=== PATIENT | female | born 1960 | race Caucasian/White ===

== ENCOUNTER → 2016-09-19 | Outpatient (CLI) | payer MEDICARE, MEDICAID ==
[~2016-09-19] MED LIST: AGM875T PO; BACL20TA PO; CEPH500C PO; CITA10SO4 PO; MPR22T TP; SIMV20TA3 PO
--- OUTSIDE RECORDS SUMMARY | 2016-09-19 10:51 | XMS REPORT | Continuity of Care Document ---
Author Author [facility] Organization [facility] Address Unknown Phone Unavailable Care Team Providers Care Shank Threader Name Role Phone PAIGE OLIVER MD PCP Insurance Providers Payer Name Policy Number Subscriber Name Relationship Wps Medicare [id number] Audrey Galindo 18 Self / Same As Patient Prem [employer] Amer[employer]p [id number] Audrey Galindo 18 Self / Same As Patient Advance Directives Directive Response Recorded Date/Time Advance Directives No 06/08/14 11:30am Health Care Power of Clinical Resource Nurse No 05/29/14 6:25pm Organ Donor Yes 05/29/14 6:25pm Problems Medical Problems Problem Onset Date Status Laceration of scalp Unknown Active Laceration of scalp Unknown Active Medications Medication Dose Route Sig Days/Qty Instructions Order Date Discontinued Date Status Citalopram Hydrobromide 10 Mg PO 10/08/12 Active Simvastatin 20 Mg PO DAILY 10/08/12 Active Baclofen (Lioresal) 1 Each PO TWICE A DAY 10/08/12 Active Amoxicillin/Clavulanate Potassium 1 Tab PO TWICE A DAY 20 Qty FOR INFECTION 10/08/12 02/01/13 Discontinued Mupirocin 0 TP THREE TIMES A DAY 1 Qty 10/08/12 02/01/13 Discontinued Cephalexin Monohydrate (Keflex) 1 Each PO TWICE A DAY 6 Qty 05/29/14 Active Social History Social History Problem Response Recorded Date/Time Alcohol Use Denies Use 06/08/2014 11:30am Recreational Drug Use No 06/08/2014 11:30am Recent Foreign Travel No 02/01/2013 5:26pm Smoking Status Never a Smoker 06/08/2014 11:30am Query Response Start Date Stop Date Smoking Status Never a Smoker Hospital Discharge Instructions No hospital discharge instructions. Plan of Care No plan of care. Functional Status No functional status results. Allergies, Adverse Reactions, Alerts Allergen Type Severity Reaction Status Last Updated neomycin sulfate Allergy Unknown Active 10/08/12 Bacitracin Zinc Allergy Unknown Active 10/08/12 bacitracin ([id number]) Allergy Unknown Active 10/08/12 Polymyxin B Allergy Unknown Active 10/08/12 MYCINS Allergy Unknown Active 10/08/12 Immunizations Name Given Type Tetanus Booster (TDap) Less than 5yrs Historical Vital Signs Acute Vital Signs Vital Response Date/Time Temperature (Fahrenheit) 97.9 degrees F (97.6 - 99.5) Temperature (Calculated Celsius) 36.42885 degrees C (36.4 - 37.5) Temperature Source Temporal Pulse Rate (adult) 82 bpm (60 - 90) Respiratory Rate 20 bpm (12 - 24) O2 Sat by Pulse Oximetry 97 % (88 - 100) Blood Pressure 108/69 mm Hg Pain Pain Intensity 0 Height (Feet) 5 feet Height (Inches) 1 inches Height (Calculated Centimeters) 154.018264 cm Weight (Pounds) 125 pounds Weight (Calculated Kilograms) 56.239405 kilograms Calculated BMI 23.62 Results No known relevant diagnostic tests, laboratory data and/or discharge summary. Procedures No known history of procedures. Encounters Encounter Location Date/Time Departed Emergency Room [facility] 06/08/14 11:23am Departed Emergency Room [facility] 05/29/14 5:49pm Recent Diagnosis
--- NOTE | 2016-09-19 11:21 | Diagnostic Imaging Report ---
AP and frog-lateral views of the right hip. INDICATION: Right hip pain. FINDINGS: No fracture, dislocation, or radiopaque foreign body seen. Minimal degenerative sclerotic changes at the symphysis pubis seen. The hip joint and right SI joint appear grossly unremarkable. IMPRESSION: No acute process. Dictated by: Dictated on workstation # [id number]
== END ==
LOC: RAD 10:47
PROVIDERS: ATTEND Family Medicine
DX: M25.551 Pain in right hip (principal)
CPT/HCPCS: 73502

== ENCOUNTER → 2016-12-11 | Outpatient (CLI) | payer MEDICARE, MEDICAID ==
--- NOTE | 2016-12-12 09:36 | Diagnostic Imaging Report ---
EXAMINATION: Bilateral screening mammogram with a Computer Aided Detection (CAD) system. INDICATION: Screening. PERSONAL HISTORY: No current complaints stated on the questionnaire. COMPARISON: 07/06/2015. FINDINGS: The breasts are composed of heterogeneously dense parenchyma which may decrease mammographic sensitivity. There is an asymmetry measuring 7 mm in the posterior aspect of the right CC projection. A similar asymmetry along the posterior aspect of the left CC view is also seen. No definite correlate on the MLO projection on each side is noted. IMPRESSION: Focal compression views and ultrasound evaluation for bilateral posterior central CC projection asymmetry would be recommended. ACR BI-RADS Category 0: Incomplete. (Needs additional imaging evaluation). Result letter will be mailed to the patient. Note: At least 10% of breast cancer is not imaged by mammography. Dictated by: Dictated on workstation # [id number]
== END ==
LOC: RAD 13:24
PROVIDERS: ATTEND Registered Nurse
DX: Z12.31 Encounter for screening mammogram for malignant neoplasm of breast (principal); R92.8 Other abnormal and inconclusive findings on diagnostic imaging of breast
CPT/HCPCS: 77067

== ENCOUNTER → 2017-01-14 | Outpatient (CLI) | payer MEDICARE, MEDICAID ==
--- NOTE | 2017-01-14 19:41 | Diagnostic Imaging Report ---
EXAMINATION: Bilateral breast ultrasound. INDICATION: Asymmetries in the posterior aspect of each breast seen on CC projection with suggestion of summation artifact on additional diagnostic views. FINDINGS: The four quadrants and retroareolar region of each breast and axilla were scanned with no underlying abnormality seen. IMPRESSION: Negative study. Annual screening mammograms recommended. ACR BI-RADS Category 1: Negative. Result letter will be mailed to the patient. Note: At least 10% of breast cancer is not imaged by mammography. Dictated by: Dictated on workstation # [id number]
--- NOTE | 2017-01-14 19:43 | Diagnostic Imaging Report ---
EXAMINATION: Left breast digital diagnostic mammogram with CAD. The current study was also evaluated with a Computer Aided Detection (CAD) system. INDICATION: Asymmetries along the central aspect of the CC projection on both sides, noted on recent screening. FINDINGS: The breasts are composed of heterogeneously dense parenchyma which may decrease mammographic sensitivity. Focal compression views in the CC projection demonstrate less prominent asymmetries blending with the rest of the dense parenchyma. Also on the true lateral view an increased density area, superiorly, is evaluated with focal compression view which demonstrates no definite underlying lesion on the corresponding focal compression view evaluation. IMPRESSION: The asymmetries evaluated with additional mammographic views demonstrate no definite underlying lesion with background dense parenchyma noted. Ultrasound evaluation is pending. ACR BI-RADS Category 0: Incomplete. (Needs additional imaging evaluation). Result letter will be mailed to the patient. Note: At least 10% of breast cancer is not imaged by mammography. Dictated by: Dictated on workstation # [id number]
== END ==
LOC: RAD 13:36
PROVIDERS: ATTEND Registered Nurse
DX: R92.8 Other abnormal and inconclusive findings on diagnostic imaging of breast (principal)
CPT/HCPCS: 77066

== ENCOUNTER → 2017-08-14 | Outpatient (CLI) | payer MEDICARE, MEDICAID ==
[2017-08-14 17:26] LABS: BASOPHILS % (AUTO) 0 % (0-10); EOSINOPHILS # (AUTO) 0.3 10^3/uL (0.0-0.3); EOSINOPHILS % (AUTO) 3 % (0-10); HEMATOCRIT 46 % (35-52); HEMOGLOBIN 15.4 G/DL (11.5-16.0); LYMPHOCYTES # (AUTO) 3.2 X 10^3 (1.0-4.0); LYMPHOCYTES % (AUTO) 40 % (12-44); MEAN CORPUSCULAR HEMOGLOBIN 30 PG (25-34); MEAN CORPUSCULAR HGB CONC 33 G/DL (32-36); MEAN CORPUSCULAR VOLUME 91 FL (80-99); MEAN PLATELET VOLUME 9.5 FL (7.4-10.4); MONOCYTES # (AUTO) 0.6 X 10^3 (0.0-1.0); MONOCYTES % (AUTO) 8 % (0-12); NEUTROPHILS # (AUTO) 3.9 X 10^3 (1.8-7.8); NEUTROPHILS % (AUTO) 49 % (42-75); PLATELET COUNT 233 10^3/uL (130-400); RED BLOOD COUNT 5.07 10^6/uL (4.35-5.85); RED CELL DISTRIBUTION WIDTH 12.9 % (10.0-14.5)
[2017-08-14 17:35] LABS: ALANINE AMINOTRANSFERASE 23 U/L (0-55); ALBUMIN 4.1 GM/DL (3.2-4.5); ALKALINE PHOSPHATASE 99 U/L (40-136); BILIRUBIN,TOTAL 0.3 MG/DL (0.1-1.0); BUN/CREATININE RATIO 23; CALCIUM 9.8 MG/DL (8.5-10.1); CARBON DIOXIDE 26 MMOL/L (21-32); CHLORIDE 105 MMOL/L (98-107); CREATININE SERUM 0.79 MG/DL (0.60-1.30); GFR ESTIMATED > 60; GLUCOSE 85 MG/DL (70-105); POTASSIUM 3.9 MMOL/L (3.6-5.0); SODIUM 142 MMOL/L (135-145); TOTAL PROTEIN 7.6 GM/DL (6.4-8.2)
== END ==
LOC: LAB 16:56
PROVIDERS: ATTEND Nurse Practitioner Family
DX: R06.2 Wheezing (principal); R05 Cough
CPT/HCPCS: 36415; 80053; 85025; 86738

== ENCOUNTER → 2018-01-29 | Outpatient (CLI) | payer MEDICARE, MEDICAID ==
--- NOTE | 2018-01-29 16:11 | Diagnostic Imaging Report ---
Indication: Routine screening. Comparison is made with prior mammogram from 12/11/2016 and 07/03/2015. 2-D and 3-D bilateral screening mammography was performed with CAD. Both breasts are heterogeneously dense, limiting the sensitivity of mammography. The right MLO view is significantly compromised due to motion artifact. Patient is reported handicapped and in a wheelchair, limiting evaluation. No mass or malignant-appearing microcalcifications are seen. The axillae are unremarkable. Impression: BI-RADS category 2. No mammographic features suspicious for malignancy are identified. ACR BI-RADS Category 2: Benign findings. Result letter will be mailed to the patient. Note: At least 10% of breast cancer is not imaged by mammography. Dictated by: Dictated on workstation # [id number]
== END ==
LOC: RAD 12:57
PROVIDERS: ATTEND Registered Nurse
DX: Z12.31 Encounter for screening mammogram for malignant neoplasm of breast (principal)
CPT/HCPCS: 77067

== ENCOUNTER 2022-02-03 05:30 | Outpatient (CLI) | payer MEDICARE, MEDICAID ==
[~2022-02-03] VITALS: Ht 154.9 cm; Wt 74.1 kg
[2022-02-06] MEDS ORDERED: FOLI0.4T6 PO ×2 (16:03)
[2022-02-06] MEDS ORDERED: FESO4TAB PO ×2 (16:03)
[2022-02-06] MEDS ORDERED: LISI20TA26 PO ×2 (16:03)
[2022-02-06] MEDS ORDERED: MONT-40 PO ×2 (16:03)
[2022-02-06] MEDS ORDERED: CELE100C84 PO ×2 (16:03)
[2022-02-06] MEDS ORDERED: MV-M1TAB20 PO ×2 (16:03)
[2022-02-06] MEDS ORDERED: OMEP20CA18 PO ×2 (16:03)
[2022-02-06] MEDS ORDERED: PRETAB ×2 (16:03)
[2022-02-06] MEDS ORDERED: CITA20TA9 PO ×2 (16:03)
== END 2022-02-06 16:21 | disposition home or self-care (01) ==
LOC: PREOP 05:30
PROVIDERS: ATTEND Obstetrics & Gynecology
DX: Z01.818 Encounter for other preprocedural examination (principal)

== ENCOUNTER 2022-02-10 08:14 | Day surgery (SDC) | payer MEDICARE, MEDICAID ==
[2022-02-10] VITALS (10 sets, daily range): BP systolic 108–146; BP diastolic 68–91
[~2022-02-10] VITALS: Ht 154.9 cm; Wt 74.1 kg
[~2022-02-10 08:14] MED LIST changes: +CELE100C84 PO; +CITA20TA9 PO; +FESO4TAB PO; +FOLI0.4T6 PO; +LISI20TA26 PO; +MONT-40 PO; +MV-M1TAB20 PO; +OMEP20CA18 PO; +PRETAB
[2022-02-10] MEDS ORDERED: BUPIVACAINE 0.25% 30 ML (SENSORCAINE) VIAL ONE (08:39)
[2022-02-10] MEDS: LACTATED RINGERS 1,000 ML IV PRN ×2 (08:44→11:01)
[2022-02-10] MEDS ORDERED: proPOfol 200 MG/20 ML (DIPRIVAN) VIAL IV ONE (08:49)
[2022-02-10] MEDS ORDERED: SEVOFLURANE (ULTANE) 15 ML INHAL SOLN ONE (08:49)
[2022-02-10] MEDS ORDERED: MIDAZOLAM 2 MG/2 ML (VERSED) VIAL ONE (08:49)
[2022-02-10] MEDS ORDERED: ONDANSETRON 4 MG/2 ML (SDV) Z0FRAN ONE (08:49)
[2022-02-10] MEDS ORDERED: fentaNYL INJ 100 MCG/2 ML AMP ONE (08:49)
[2022-02-10] MEDS ORDERED: LIDOCAINE PF 2% 5 ML (XYLOCAINE) VIAL ONE (08:49)
--- NOTE | 2022-02-10 10:02 | Progress Note-Pre Operative ---
Pre-Operative Progress Note H&P Reviewed The H&P was reviewed, patient examined and no changes noted. Date Seen by Provider: Feb 10, 2022 Time Seen by Provider: 10:00 Date H&P Reviewed: Feb 10, 2022 Time H&P Reviewed: 10:00 Pre-Operative Diagnosis: Mental R, secondary to head trauma, Intolerance of exam. LUZ TINOCO DO Feb 10, 2022 10:02
[2022-02-10 10:12] LABS: BASOPHILS % (AUTO) 1 % (0-10); EOSINOPHILS # (AUTO) 0.1 10^3/uL (0.0-0.3); EOSINOPHILS % (AUTO) 2 % (0-10); HEMATOCRIT 44 % (35-52); HEMOGLOBIN 14.5 g/dL (11.5-16.0); LYMPHOCYTES # (AUTO) 2.2 10^3/uL (1.0-4.0); LYMPHOCYTES % (AUTO) 28 % (12-44); MEAN CORPUSCULAR HEMOGLOBIN 31 pg (25-34); MEAN CORPUSCULAR HGB CONC 33 g/dL (32-36); MEAN CORPUSCULAR VOLUME 93 fL (80-99); MEAN PLATELET VOLUME 9.6 fL (9.0-12.2); MONOCYTES # (AUTO) 0.6 10^3/uL (0.0-1.0); MONOCYTES % (AUTO) 8 % (0-12); NEUTROPHILS # (AUTO) 4.7 10^3/uL (1.8-7.8); NEUTROPHILS % (AUTO) 62 % (42-75); PLATELET COUNT 224 10^3/uL (130-400); WHITE BLOOD COUNT 7.7 10^3/uL (4.3-11.0)
[2022-02-10] MEDS ORDERED: KETOROLAC 30 MG/ML VIAL IVP ONE (10:15)
[2022-02-10] MEDS ORDERED: D5 LR IV SOLUTION 1,000 ML IV SCH (10:15)
[2022-02-10] MEDS ORDERED: ONDANSETRON 4 MG/2 ML (SDV) Z0FRAN IVP PRN ×2 (10:15→10:45)
[2022-02-10] MEDS ORDERED: morphine INJ 10 MG/ML 1ML (SYR OR VIAL) IVP ONE (10:45)
[2022-02-10] MEDS ORDERED: ALBUMIN 25% 25 GM/100 ML 100 ML IV ONE (11:15)
--- NOTE | 2022-02-10 14:18 | OPERATIVE REPORT ---
DATE OF SERVICE: PREOPERATIVE DIAGNOSES: 1. A 61-year-old female with mental disability. 2. Intolerance of exam. POSTOPERATIVE DIAGNOSES: 1. A 61-year-old female with mental disability. 2. Intolerance of exam. PROCEDURE: Exam under anesthesia with Pap smear cytology collection. SURGEON: Luz Tinoco DO ANESTHESIA: LMA. ESTIMATED BLOOD LOSS: Minimal. INDICATIONS FOR PROCEDURE: This is a 61-year-old female patient who lives in a retirement due to her mental disability, discussed with them performing exam under anesthesia, she cannot tolerate in the office. Risks of the procedure were discussed with her caregivers and the patient. All her questions were answered, consent was obtained, and the patient was taken to the operating room. OPERATIVE REPORT IN DETAIL: Once in the operating room, anesthesia was found to be adequate. She was placed in dorsal lithotomy position, prepped and draped in normal sterile fashion where a Graves speculum was then inserted after a timeout was performed. Once the cervix was visualized, we collected Pap smear and removed the Graves speculum. There is some tearing at the vaginal introitus, which causes some vaginal bleeding, which I cauterized using silver nitrate. Otherwise, there is no active bleeding noted from the vagina and the patient tolerated the procedure well and sent to recovery area in stable condition. Lap and sponge counts were correct at the end of the procedure. Instrument counts correct as well. Job ID: [id number] DocumentID: [id number] Dictated Date: 02/10/2022 10:42:40 Core Layer Machine Operator Date: 02/10/2022 14:17:25 Dictated By: LUZ TINOCO DO
--- NOTE | 2022-02-10 15:11 | Anesthesia-General Post-Op ---
General Patient Condition Mental Status/LOC: Same as Preop Cardiovascular: Satisfactory Nausea/Vomiting: Absent Respiratory: Satisfactory Pain: Controlled Complications: Absent Post Op Complications Complications None Follow Up Care/Instructions Patient Instructions None needed. Anesthesia/Patient Condition Patient Condition Patient is doing well, no complaints, stable vital signs, no apparent adverse anesthesia problems. No complications reported per nursing. D/C home per [facility] [place] Criteria: Yes BRIDGER CAMPOS CRNA Feb 10, 2022 15:11
--- NOTE | 2022-02-13 08:17 | History & Physical-Surgical ---
HPO-Surgical History of Present Illness Chief Complaint: Mental disability, need for pelvic exam Diagnosis/Surgical Indication: Mental R, secondary to head trauma, Intolerance of exam. Procedure: EUA,PAPSMEAR Date of Surgery: Feb 10, 2022 Weight (Pounds): 125 Height (Feet): 5 Height (Inches): 1 Allergies and Home Medications Allergies Coded Allergies: Bacitracin Zinc (Verified Allergy, Unknown, 02/06/22) bacitracin (Verified Allergy, Unknown, 02/06/22) neomycin sulfate (Verified Allergy, Unknown, 02/06/22) peanut (Verified Allergy, Unknown, RASH, 02/06/22) polymyxin B (Verified Allergy, Unknown, 02/06/22) Uncoded Allergies: FIBERGLASS (Allergy, Unknown, RASH, 02/06/22) MYCINS (Allergy, Unknown, 10/08/12) Patient Home Medication List Home Medication List Reviewed: Yes Baclofen (Baclofen) 20 Mg Tablet, 0.5 EACH PO TID, (Reported) Entered as Reported by: JORGE L MOONEY on 10/08/12 1143 Celecoxib (Celecoxib) 100 Mg Capsule, 100 MG PO DAILY, (Reported) Entered as Reported by: NII FAJARDO on 02/06/22 160 Citalopram Hydrobromide (Citalopram HBr) 20 Mg Tablet, 20 MG PO DAILY, (Reported) Entered as Reported by: INI FAJARDO on 02/06/22 160 Fesoterodine Fumarate (Toviaz) 4 Mg Tab.sr.24h, 4 MG PO DAILY, (Reported) Entered as Reported by: NII FAJARDO on 02/06/22 160 Folic Acid (Folic Acid) 0.4 Mg Tablet, 0.4 MG PO, (Reported) Entered as Reported by: NII FAJARDO on 02/06/22 160 Lisinopril (Lisinopril) 20 Mg Tablet, 20 MG PO DAILY, (Reported) Entered as Reported by: NII FAJARDO on 02/06/22 160 Montelukast Sodium (Montelukast Sodium) 10 Mg Tablet, 10 MG PO DAILY, (Reported) Entered as Reported by: NII FAJARDO on 02/06/221602 Mv-Mn/Iron/FA/Herbal Cmplx#190 (Vitamin D3 Complete Caplet) 18 Mg Iron-800 Mcg- 150 Mg Tablet, 1 EACH PO, (Reported) Entered as Reported by: NII Idania TANA on 02/06/22 160 Omeprazole (Omeprazole) 20 Mg Capsule.dr, 20 MG PO DAILY, (Reported) Entered as Reported by: NII Emerson TANA on 02/06/22 160 Simvastatin (Simvastatin) 20 Mg Tablet, 20 MG PO DAILY, (Reported) Entered as Reported by: JORGE L MOONEY on 10/08/12 1143 [Pretab] Unknown Strength , Unknown Dose, (Reported) Entered as Reported by: NII FAJARDO on 02/06/22 160 Discontinued Medications Cephalexin Monohydrate (Cephalexin) 500 Mg Capsule, 1 EACH PO BID Discontinued Reason: No Longer Taking Prescribed by: DOT MICHELE on 05/29/14 185 Citalopram Hydrobromide (Citalopram) 10 Mg/5 Ml Solution, 10 MG PO, (Reported) Discontinued Reason: No Longer Taking Entered as Reported by: JORGE L MOONEY on 10/08/12 1143 Past Lfzozah-Nyxhef-Ugmckm Hx Patient Social History Smoking Status: Never a Smoker 2nd Hand Smoke Exposure: No Immunizations Up To Date Tetanus Booster (TDap): Less than 5yrs Date of Influenza Vaccine: Sep 17, 2021 Seasonal Allergies Seasonal Allergies: Yes Surgeries Yes (BRAIN INJURY/TRAUMA CHILD WITH SURGERY) Gallbladder, Orthopedic, Tubal Ligation Respiratory Yes Cardiovascular Yes Hypertension Neurological Yes Traumatic Brain Injury Genitourinary Yes (OAB) UTI-Chronic Gastrointestinal Yes Gastroesophageal Reflux Musculoskeletal Yes Contracture Endocrine History of Endocrine Disorders: No HEENT History of HEENT Disorders: No Cancer No Psychosocial History of Psychiatric Problem: No Integumentary History of Skin or Integumenta: No Blood Transfusions History of Blood Disorders: No Family Medical History Family Hx: Colon cancer 19 MOTHER FH: heart disease 19 FATHER FH: uterine cancer 19 MOTHER Exam Vital Signs Vital Signs 02/10/22 02/10/22 12:20 12:27 Temp 36.5 Pulse 86 Resp 20 B/P (MAP) 127/84 Pulse Ox 97 O2 Delivery Room Air Capillary Refill : General Appearance: Alert, Cooperative HEENT: Atraumatic, PERRLA Respiratory: Clear to Auscultation Cardiovascular: Regular Rate Abdominal: Normal Bowel Sounds Psych/Mental Status: Other (confusion with situation) Assessment/Plan Assessment and Plan A: Mental disability P: EUA and pap smear Admission Diagnosis Mental disability Intolerance of exam Admission Status: Other (Same Day Surgery) LUZ TINOCO DO Feb 13, 2022 08:17
== END 2022-02-10 12:27 | disposition home or self-care (01) ==
LOC: SDC 08:14
PROVIDERS: ATTEND Obstetrics & Gynecology
DX: F79 Unspecified intellectual disabilities (principal); E66.9 Obesity, unspecified; Z68.30 Body mass index [BMI] 30.0-30.9, adult
CPT/HCPCS: 36415; 85025; 86850; 86900; 86901; 87081